=== PATIENT | female | born 1945 | race Caucasian/White ===

== ENCOUNTER 2017-03-05 06:48 | Day surgery (SDC) | payer OTHER ==
[~2017-03-05] VITALS: Ht 154.9 cm; Wt 62.3 kg
[2017-03-05 07:12] VITALS: BP 136/67; PULSE 95; RESP 20; TEMP 98.1; O2SAT 94
[2017-03-05] MEDS ORDERED: POVIDONE IODINE 5% (ANTISEPSIS KIT) 4 APPLICATIONS EACH NARE SCH (07:30)
[2017-03-05] MEDS ORDERED: CHLORHEXIDINE GLUCONATE 2 % 1 PACK (2 CLOTHS) TOPICAL SCH (07:30)
[2017-03-05] MEDS ORDERED: VANCOMYCIN 1000 MG/NS 250 ML - implanted port/tunneled catheter IV SCH ×2 (07:30)
[2017-03-05] MEDS ORDERED: ceFAZolin 2 GM PREMIX 50 ML - implanted port/tunneled catheter insertion IV SCH (07:30)
[2017-03-05] MEDS ORDERED: GARL400T2 (07:55)
[2017-03-05] MEDS ORDERED: ONDA1TAB16 (07:55)
[2017-03-05] MEDS ORDERED: MULTTAB24 (07:55)
[2017-03-05] MEDS ORDERED: CALC-131 PO (07:55)
[2017-03-05] MEDS ORDERED: MORP10SO (07:55)
[2017-03-05] MEDS ORDERED: URSO300C2 PO (07:55)
[2017-03-05] MEDS ORDERED: LACTGRA PO (07:55)
[2017-03-05] MEDS ORDERED: NIAC500T67 (07:55)
[2017-03-05 08:17] LABS: HEMATOCRIT 30.4 % (35.0-46.0); MEAN CELL VOLUME 97.7 FL (80.0-100.0); MEAN CORPUSCULAR HEMOGLOBIN 31.1 PG (27.0-34.0); MEAN CORPUSCULAR HGB CONC 31.9 % (32.0-36.0); PLATELET COUNT 142 TH/MM3 (150-450); RED BLOOD COUNT 3.11 MIL/MM3 (4.00-5.30); RED CELL DISTRIBUTION WIDTH 14.3 % (11.6-17.2); WHITE BLOOD COUNT 18.1 TH/MM3 (4.0-11.0)
[2017-03-05 08:19] LABS: HEMO FLAGS AUTO DIFF
[2017-03-05 08:21] LABS: APTT (PATIENT) 27.8 SEC (24.3-30.1); INTERNATIONAL NORMALIZED RATIO 1.5 RATIO; PROTHROMBIN TIME - PATIENT 17.3 SEC (9.8-11.6)
[2017-03-05] MEDS ORDERED: LIDOCAINE 1%/EPINEPHrine 1:100,000 SOLN 20 ML VIAL ONE (08:42)
[2017-03-05] MEDS ORDERED: fentaNYL CITRATE 250 MCG/5 ML AMP ONE (08:45)
[2017-03-05] MEDS ORDERED: MIDAZOLAM HCL 5 MG/5 ML VIAL ONE (08:45)
[2017-03-05 08:59] LABS: BANDS 12 % (0-6); CORRECTED NUCLEATED RBC 1 /100 WBC (0-0); EOSINOPHILS 1 % (0-4); METAMYELOCYTES 2 % (0-1); MYELOCYTES 3 % (0-0); NEUTROPHIL # MANUAL DIFF 13.2 TH/MM3 (1.8-7.7); POLYS (SEG NEUTROPHILS) 56 % (16-70); WBC DIFF SAMPLE 100
[2017-03-05 09:00] LABS: PLATELET ESTIMATE SMEAR LOW (NORMAL); PLATELET MORPHOLOGY NORMAL (NORMAL); TARGET CELLS 1+ (NORMAL)
[2017-03-05 09:01] LABS: SCAN/DIFF FINAL DIFF MANUAL
[2017-03-05 09:03] LABS: TOXIC GRANULATION 2+ (NORMAL)
--- NOTE | 2017-03-05 09:41 | PD.RAD ---
Post Procedure Progress Note Pre Procedure Diagnosis: (1) Pancreas cancer Post Procedure Diagnosis: (1) Pancreas cancer Procedure Date: Mar 05, 2017 Supervising Radiologist: Jacinto Ho Proceduralist/Assist: Solange Rowland, RT(R)(CV), Katrina Brito RT(R) Estimated blood loss: 0 ml Anesthesia: Conscious Sedation Plan of Activity Patient to Unit: ROPU Patient Condition: Good Additional Comments: patent IJ. Tip near ACJ. See PACS Report for procedural detail/treatment Jacinto Ho MD Mar 05, 2017 09:41
[2017-03-05 09:45] VITALS: BP 114/57; PULSE 96; RESP 20; TEMP 97.6; O2SAT 91
[2017-03-05] MEDS ORDERED: SODIUM CHLORIDE 0.9% FLUSH 10 ML FLUSH IVF PRN (09:45)
[2017-03-05 10:00] VITALS: BP 127/64; PULSE 101; RESP 20; O2SAT 91
--- NOTE | 2017-03-05 10:16 | RADRPT ---
EXAM DATE/TIME: 03/05/2017 09:35 [facility] COMPARISON: No previous studies available for comparison. INDICATIONS : Patient with pancreatic Ca. with liver mets. MEDICAL HISTORY : 1. Pancreatic ca. 2. liver mets 3. Jaundice SURGICAL HISTORY : 1. cataract removal 2. tubal ligation 3. liver bx ENCOUNTER: Initial ACUITY: 2 weeks PAIN SCORE: 3/10 LOCATION: hip and neck. FLUORO TIME: 0.2 minutes IMAGE SERIES: 0 SEDATION TIME: 30 minutes ACCESS: Right internal jugular vein SEDATION: 1.) 2 mg midazolam (Versed) IV 2.) 100 mcg fentanyl (Sublimaze) IV Prophylactic antibiotics were administered with appropriate pre-procedure timing. Vancomycin within 2 hours of procedure, Ancef (or alternative) within 1 hour of procedure. DEVICE: 1. 8 [place] single lumen snare PROCEDURE : 1. Continuous pulse oximetry and EKG monitoring. 2. Intravenous conscious sedation. 3. Ultrasound guidance for venous access. 4. Fluoroscopic guided implantable central venous port placement. The patient was placed supine. The neck was prepped in sterile fashion. Full sterile technique was u sed, including cap, mask, sterile gloves and gown, and a large sterile sheet. Hand hygiene and 2% ch lorhexidine Betadine was utilized per protocol for cutaneous antisepsis with appropriate dry time for site. The skin and subcutaneous tissues were infiltrated with local anesthetic solution. Under direct ultrasound guidance, central venous access was accomplished in the targeted vessel. The ultrasound images depicting access guidance were stored and saved to PACS for permanent record. A s ubcutaneous pocket was created using blunt dissection. The port was introduced to the pocket. The c atheter tubing was fed through a subcutaneous tunnel to the venotomy site. The catheter tubing was c ut to a suitable length and then was introduced through a valved Peel-Away sheath and positioned with catheter tubing tip at the cavo-atrial junction level. The pocket incision was closed with subcutic ular Vicryl suture. Steri-Strips were applied. The port was flushed and locked with heparin solutio n per protocol. Sterile dressing was applied to the site. The patient tolerated the procedure well. Conscious sedation was performed with the prescribed dosages and duration as above in the presence of an independent trained radiology nurse to assist in the monitoring of the patient. EKG and oximetry remained stable throughout the procedure. The patient tolerated the procedure well and there were no complications. The patient was sent to post anesthesia recovery in stable condition. CONCLUSION: Uncomplicated ultrasound and fluoroscopic guided implanted central venous port catheter placement as described in detail above. An 8 [place] Power port was placed. Jacinto Ho MD on March 05, 2017 at 10:14 Board Certified Radiologist. This report was verified electronically.
[2017-03-05 10:30] VITALS: BP 123/71; PULSE 94; RESP 18; O2SAT 92
[2017-03-05 11:00] VITALS: BP 118/64; PULSE 93; RESP 16; O2SAT 93
== END 2017-03-05 12:00 | disposition home or self-care (01) ==
LOC: HROP 06:48 → HRIP 06:49 → HROP 12:00
PROVIDERS: ATTEND Internal Medicine Hematology & Oncology
DX: C25.9 Malignant neoplasm of pancreas, unspecified (principal); C78.7 Secondary malignant neoplasm of liver and intrahepatic bile duct
CPT/HCPCS: 36561; 76937; 77001; 85007; 85027; 85610; 85730; 99152; 99153; C1788; J0690; J1642; J2250; J3010; J3370; J7050